=== PATIENT | male | born 1980 | race Hispanic/Latino ===

== ENCOUNTER 2019-05-14 17:14 | Emergency (ER) | payer OTHER, SELFPAY | END 2019-05-14 18:01 | disposition home or self-care (01) | LOC: NAV ERS 17:14 | DX: B02.9 Zoster without complications (principal); F41.9 Anxiety disorder, unspecified; F32.9 Major depressive disorder, single episode, unspecified; K21.9 Gastro-esophageal reflux disease without esophagitis; I10 Essential (primary) hypertension; Z79.899 Other long term (current) drug therapy | CPT/HCPCS: 99282 ==